=== PATIENT | female | born 1940 | race Caucasian/White ===

== ENCOUNTER 2017-06-30 13:00 | Emergency (ER) | payer OTHER ==
[~2017-06-30] VITALS: Ht 165.1 cm; Wt 83.8 kg
[~2017-06-30 13:00] MED LIST: ADVAIR 250/501 DISK IH; ALBUTEROL17 GM IH; ASPIR 8181 M1 PO; CELEXA20 MG PO; GLUCOPHAGE500 MG PO; LEXAPRO10 MG PO; NEXIUM40 MG PO; NORVASC5 MG PO; ZESTORETIC 20-1 EAC1 PO; ZETIA10 MG PO
[2017-06-30 15:38] LABS: ADD MIUA? YES; BILIRUBIN NEGATIVE; BLOOD NEGATIVE; COLOR YELLOW ((YELLOW)); GLUCOSE (STRIP) 150; KETONES NEGATIVE; LEUKOCYTES TRACE; NITRITE POSITIVE; PROTEIN (STRIP) 30; SPECIFIC GRAVITY 1.019 (1.000-1.030); UROBILINOGEN 0.2 MG/DL (0.2-1.0)
[2017-06-30 15:44] LABS: BACTERIA 3+ /HPF; EPITHELIAL CELLS 1+ /HPF; HYALINE CASTS 0-5 /LPF; MUCUS 3+ /LPF; RED BLOOD CELLS 0-5 /HPF (0-5); UCUL ADDED? YES
[2017-06-30] MEDS ORDERED: MACROBID100 MG PO (17:39)
[2017-06-30 18:18] VITALS: BP 174/78
[2017-07-01] MEDS ORDERED: PANTOPRAZOLE SO40 MG PO (13:20)
[2017-07-01] MEDS ORDERED: GLUCOPHAGE500 MG PO ×2 (13:23→13:24)
[2017-07-01] MEDS ORDERED: LIPITOR10 MG PO (13:25)
[2017-07-01] MEDS ORDERED: FOLGARD1 TABLET PO (13:26)
[2017-07-01] MEDS ORDERED: GARLIC1000 MG PO (13:27)
[2017-07-01] MEDS ORDERED: INTRINSI B12-F1 EACH PO (13:29)
[2017-07-01] MEDS ORDERED: CRANBERRY TABL1 EACH PO (13:29)
== END 2017-06-30 18:19 | disposition home or self-care (01) ==
LOC: EME 13:00
PROVIDERS: Emergency Medicine
DX: N39.0 Urinary tract infection, site not specified (principal); E86.0 Dehydration; R05 Cough; R42 Dizziness and giddiness; R51 Headache; I10 Essential (primary) hypertension; J44.9 Chronic obstructive pulmonary disease, unspecified; E11.9 Type 2 diabetes mellitus without complications; Z79.84 Long term (current) use of oral hypoglycemic drugs; Z79.82 Long term (current) use of aspirin
CPT/HCPCS: 71020; 81003; 87077; 87086; 87186; 87502; 99281; 99285; J7030

== ENCOUNTER 2017-07-01 03:47 | Inpatient (IN) | payer OTHER ==
[~2017-07-01] VITALS: Ht 160 cm; Wt 84.0 kg
[~2017-07-01 03:47] MED LIST changes: +MACROBID100 MG PO
[2017-07-01 04:19] LABS: HEMATOCRIT 38.4 % (36.0-46.0); MCH 29.5 PG (29.0-34.0); MCHC 33.3 G/DL (30.0-36.0); MCV 88.5 FL (83-99); MEAN PLAT.VOLUME 10.1 uM^3 (9.5-12.4); RBC DIS.WIDTH-CV 13.3 % (11.8-14.6); RBC DIS.WIDTH-SD 43.6 % (39-53); RED BLOOD COUNT 4.34 M/uL (3.80-5.20); WHITE BLOOD COUNT 13.8 K/uL (4.1-10.2)
[2017-07-01 04:21] LABS: PLATELET COUNT 142 K/uL (156-360)
[2017-07-01 04:34] LABS: CHLORIDE 102 mEq/L (99-109); POTASSIUM 3.6 mEq/L (3.7-5.4); SODIUM 136 mEq/L (136-147)
[2017-07-01 04:36] LABS: GLUCOSE 191 mg/dL (70-99)
[2017-07-01 04:37] LABS: ANION GAP 10 MEQ/L (2-14)
[2017-07-01 04:40] LABS: GFR ESTIMATE (CALCULATED) > 59 mL/min/
[2017-07-01 04:41] LABS: UREA NITROGEN (BUN) 18 mg/dL (9-23)
[2017-07-01 07:56] VITALS: BP 117/55
[2017-07-01 08:50] LABS: POINT-OF-CARE METER ID UU13113774
[2017-07-01 09:33] LABS: ADD MIUA? YES; BILIRUBIN NEGATIVE; BLOOD NEGATIVE; COLOR AMBER ((YELLOW)); GLUCOSE (STRIP) 50; KETONES NEGATIVE; LEUKOCYTES SMALL; NITRITE NEGATIVE; PROTEIN (STRIP) NEGATIVE; SPECIFIC GRAVITY 1.021 (1.000-1.030)
[2017-07-01 09:58] LABS: BACTERIA 2+ /HPF; EPITHELIAL CELLS 1+ /HPF; MUCUS 3+ /LPF; RED BLOOD CELLS 0-5 /HPF (0-5); UCUL ADDED? YES; WHITE BLOOD CELLS 20-30 /HPF (0-5)
[2017-07-01 11:47] VITALS: BP 115/56
[2017-07-01 11:56] LABS: POINT-OF-CARE METER ID UU13113774
[2017-07-01] MEDS ORDERED: PANTOPRAZOLE SO40 MG PO (13:20)
[2017-07-01] MEDS ORDERED: GLUCOPHAGE500 MG PO ×2 (13:23→13:24)
[2017-07-01] MEDS ORDERED: LIPITOR10 MG PO (13:25)
[2017-07-01] MEDS ORDERED: FOLGARD1 TABLET PO (13:26)
[2017-07-01] MEDS ORDERED: GARLIC1000 MG PO (13:27)
[2017-07-01] MEDS ORDERED: CRANBERRY TABL1 EACH PO (13:29)
[2017-07-01] MEDS ORDERED: INTRINSI B12-F1 EACH PO (13:29)
[2017-07-01 15:51] VITALS: BP 126/59
[2017-07-01 17:03] LABS: POINT-OF-CARE METER ID UU13113774
[2017-07-01 19:52] VITALS: BP 132/60
[2017-07-01 20:59] LABS: POINT-OF-CARE METER ID UU13113774
[2017-07-02] VITALS (7 sets, daily range): BP systolic 111–146; BP diastolic 57–78
[2017-07-02 06:24] LABS: POINT-OF-CARE METER ID UU13113774
[2017-07-02 06:34] LABS: HEMATOCRIT 34.9 % (36.0-46.0); MCH 29.3 PG (29.0-34.0); MCHC 32.4 G/DL (30.0-36.0); MCV 90.4 FL (83-99); MEAN PLAT.VOLUME 10.7 uM^3 (9.5-12.4); PLATELET COUNT 113 K/uL (156-360); RBC DIS.WIDTH-CV 13.4 % (11.8-14.6); RBC DIS.WIDTH-SD 44.2 % (39-53); RED BLOOD COUNT 3.86 M/uL (3.80-5.20); WHITE BLOOD COUNT 7.9 K/uL (4.1-10.2)
[2017-07-02 06:54] LABS: ANION GAP 8 MEQ/L (2-14); CHLORIDE 108 MEQ/L (99-109); GFR ESTIMATE (CALCULATED) > 59 mL/min/; GLUCOSE 156 mg/dL (70-99); POTASSIUM 3.7 MEQ/L (3.7-5.4); SAMPLE HEMOLYSIS CHECK 0; SAMPLE ICTERIC CHECK 0; SAMPLE LIPEMIA CHECK 0; SODIUM 142 MEQ/L (136-147); UREA NITROGEN (BUN) 12 mg/dL (9-23)
[2017-07-02 11:21] LABS: POINT-OF-CARE METER ID UU13113774
[2017-07-02 15:47] LABS: POINT-OF-CARE METER ID UU13113725
[2017-07-02 21:23] LABS: POINT-OF-CARE METER ID UU13113774
[2017-07-03 04:00] VITALS: BP 122/74
[2017-07-03 05:37] LABS: HEMATOCRIT 34.5 % (36.0-46.0); MCH 29.4 PG (29.0-34.0); MCHC 32.8 G/DL (30.0-36.0); MCV 89.8 FL (83-99); MEAN PLAT.VOLUME 10.7 uM^3 (9.5-12.4); PLATELET COUNT 125 K/uL (156-360); RBC DIS.WIDTH-CV 13.3 % (11.8-14.6); RED BLOOD COUNT 3.84 M/uL (3.80-5.20); WHITE BLOOD COUNT 6.4 K/uL (4.1-10.2)
[2017-07-03 06:04] LABS: ANION GAP 8 MEQ/L (2-14); CHLORIDE 105 MEQ/L (99-109); GFR ESTIMATE (CALCULATED) > 59 mL/min/; GLUCOSE 149 mg/dL (70-99); MAGNESIUM 1.7 mg/dl (1.3-2.7); POTASSIUM 3.9 MEQ/L (3.7-5.4); SAMPLE HEMOLYSIS CHECK 0; SAMPLE ICTERIC CHECK 0; SAMPLE LIPEMIA CHECK 0; SODIUM 141 MEQ/L (136-147); UREA NITROGEN (BUN) 13 mg/dL (9-23)
[2017-07-03 06:57] LABS: POINT-OF-CARE METER ID UU13113725; POINT-OF-CARE USER ID AHSUCEG
[2017-07-03 07:33] VITALS: BP 147/65
[2017-07-03 11:37] LABS: POINT-OF-CARE METER ID UU13113725
[2017-07-03] MEDS ORDERED: CIPRO500 MG PO (12:02)
== END 2017-07-03 15:22 | disposition home or self-care (01) | DRG 690 ==
LOC: EME 03:47 → 5EAST 06:13 → EDOF 06:13 → ENRESERV 06:14 → 5EAST 07:42
PROVIDERS: Hospitalist; Internal Medicine; Physician Assistant; Student in an Organized Health Care Education/Training Program
DX: N10 Acute pyelonephritis (principal); B96.1 Klebsiella pneumoniae [K. pneumoniae] as the cause of diseases classified elsewhere; N30.90 Cystitis, unspecified without hematuria; J43.9 Emphysema, unspecified; R01.1 Cardiac murmur, unspecified; E66.9 Obesity, unspecified; E11.9 Type 2 diabetes mellitus without complications; E78.5 Hyperlipidemia, unspecified; I10 Essential (primary) hypertension; Z87.442 Personal history of urinary calculi; Z87.440 Personal history of urinary (tract) infections; Z79.84 Long term (current) use of oral hypoglycemic drugs; Z79.82 Long term (current) use of aspirin; Z88.5 Allergy status to narcotic agent; Z90.49 Acquired absence of other specified parts of digestive tract; Z68.32 Body mass index [BMI] 32.0-32.9, adult
CPT/HCPCS: 36415; 71020; 74176; 80048; 81003; 82948; 83605; 83735; 85025; 85027; 85651; 86140; 87040; 87077; 87086; 87186; 87502; 87801; 93306; 94640; 94640 76; 94799; 99202; 99281; 99285; J0696; J1644; J1815; J1885; J7030; J7040; J7050